=== PATIENT | female | born 1980 | race Two or more races ===

== ENCOUNTER 2025-03-19 10:25 | Emergency (ER) | payer BC, MEDICAID ==
[~2025-03-19] VITALS: Ht 157.5 cm; Wt 65.0 kg
[2025-03-19 11:13] LABS: PLATELET COUNT (AUTO) 287 K/uL (150-450); RED BLOOD CELL COUNT(AUTO) 4.39 MIL/uL (4.0-5.2); RED CELL DISTRIBUTION WIDTH 13.6 % (11.5-15.0); WHITE BLOOD COUNT (AUTO) 9.1 K/uL (4.3-11.0)
[2025-03-19] MEDS ORDERED: KETOROLAC TROMETHAMINE 15 MG/ML VIAL ONE (11:25)
[2025-03-19] MEDS: IV NS 0.9% 1,000 ML BAG IV ONE (11:26)
[2025-03-19] MEDS: KETOROLAC TROMETHAMINE 15 MG/ML VIAL IV ONE (11:31)
[2025-03-19 11:34] LABS: ASPARTATE AMINOTRANSFERASE 25.0 U/L (15-37); CALCIUM, SERUM 8.4 mg/dL (8.5-10.1); CREATININE 0.6 mg/dL (0.6-1.3); TOTAL PROTEIN, SERUM 7.6 g/dL (6.4-8.2); UREA NITROGEN, BLOOD 16.0 mg/dL (7-18)
[2025-03-19 11:39] LABS: SODIUM SERUM 137.0 mmol/L (136-145)
[2025-03-19 11:58] LABS: APPEARANCE,URINE SLIGHTLY CLOUDY (CLEAR); BLOOD, URINE Small Ery/uL (NEGATIVE); LEUKOCYTE ESTERASE ,URINE Moderate (NEGATIVE); NITRITE, URINE NEGATIVE (NEGATIVE); UGLUCOSE Negative (NEGATIVE)
[2025-03-19 12:13] LABS: ADD URINE CULTURE YES
[2025-03-19] MEDS ORDERED: CEPH-570 PO (12:22)
[2025-03-19 12:33] VITALS: BP 147/90; TEMP 98.9; O2SAT 99
== END 2025-03-19 12:34 | disposition home or self-care (01) ==
LOC: ER 10:35
DX: N39.0 Urinary tract infection, site not specified (principal); I10 Essential (primary) hypertension; N83.291 Other ovarian cyst, right side; Z90.49 Acquired absence of other specified parts of digestive tract
CPT/HCPCS: 99285; 96374; 76856; 96361; 85025; 80048; 87086; 83690; 80076; 84703; 81001; 36415; J1885; J7030